=== PATIENT | female | born 1960 | race Hispanic/Latino ===

== ENCOUNTER → 2017-03-14 | Outpatient (CLI) | payer MEDICARE, OTHER ==
[~2017-03-14] MED LIST: ALPRAZOLAM0.5 M1 PO; CALCITRIOL0.5 MCG PO; CARVEDILOL6.25 MG PO; CEPHALEXIN500 MG PO; CIPRO500 MG PO; DIAZEPAM10 MG PO; DICYCLOMINE HCL20 MG PO; FOLIC ACID1 MG PO; GABAPENTIN100 MG; GABAPENTIN100 MG PO; HYDROCODON-ACE1 EA12 PO; KEFLEX500 MG PO; LAMOTRIGINE25 MG PO; LISINOPRIL10 MG PO; METHYLPREDNISOLO4 MG PO; METOPROLOL SUCC25 MG PO; METOPROLOL TART25 MG PO; METRONIDAZOLE500 MG PO; NITROGLYCERIN0.4 MG SL; NORCO 10-325 T1 EACH PO; NORCO 5-325 TA1 EACH PO; ONDANSETRON HCL8 MG PO; PANTOPRAZOLE SO40 MG PO; PREVACID30 M1 PO; PROTONIX IV40 MG PO; RENVELA800 MG PO; ULTRAM 50MG50 MG PO; ULTRAM50 MG PO; VITAMIN D400 UNIT PO; XANAX0.25 MG PO; ZOFRAN ODT4 MG PO; ZOFRAN8 MG PO
--- NOTE | 2017-03-14 10:30 | Diagnostic Imaging Report ---
EXAMINATION: Head CT HISTORY: History of prior intracranial hemorrhage, evaluate for antiplatelet treatment. Bilateral lower extremity weakness, diabetes, hypertension, patient on dialysis COMPARISON: Head CT 11/16/2014 and 11/10/2014 and MRI of 11/10/2014 TECHNIQUE: Multidetector axial images were obtained without contrast from the foramen magnum to the vertex . The images were reconstructed using brain and bone algorithms. Thin section brain images were reformatted into coronal and sagittal planes. Intravenous contrast: None. Motion/streaking artifact limits the evaluation of the skull base and posterior cranial fossa. FINDINGS: Parenchyma: 1. Persistent moderate confluent periventricular and rosales radiata white matter hypodensities, most likely nonspecific chronic microvascular ischemic changes. Tiny chronic lacunar infarct in the right frontal centrum semiovale 2. No mass or hemorrhage. No CT evidence of acute territorial vascular insult. Extra-axial spaces:No abnormal density. No extra-axial fluid collections Brain volume: Normal for age. Ventricles: No hydrocephalus or displacement. Arteries: Prominent calcification of the intra and extracranial vessels, likely related to chronic renal disease. Dural sinuses: No abnormal density. Extra-axial spaces: No abnormal density. Foramen magnum: No mass, Chiari malformation, or basilar invagination. Sella: No obvious mass. Paranasal/mastoid sinuses: Imaged portions unremarkable. Skull/Scalp: Unchanged mild expansion, heterogeneous bone marrow density and mostly diffuse hyperdensity of the calvarial bone marrow, related to known hyperparathyroidism, which may be related to renal osteodystrophy. IMPRESSION: 1. No evidence of acute or chronic intracranial hemorrhage, particularly when compare to brain MRI on 11/10/2014. 2. Stable moderate confluent white matter chronic microvascular ischemic changes. Signed by: Dr. Aida Manley M.D. on 03/14/2017 10:27 AM
== END ==
LOC: MRI 09:05
PROVIDERS: ATTEND Internal Medicine Cardiovascular Disease
DX: Z87.898 Personal history of other specified conditions (principal)
CPT/HCPCS: 70450

== ENCOUNTER → 2017-03-21 | Outpatient (CLI) | payer MEDICARE, OTHER ==
[~2017-03-21] MED LIST changes: +LORAZEPAM INJ 2 MG/ML VIAL ONE
--- NOTE | 2017-03-21 11:27 | Diagnostic Imaging Report ---
Exam: Brain and intracranial MRA without IV contrast History: History of intracranial hemorrhage Comparison studies: Brain MRI 11/10/2014. Head CTs of 03/14/2017 and 11/08/2014. Technique: Brain MRI: Sagittal axial T2 FS, axial coronal T2 flair, axial DWI, axial T1 FLAIR and axial T2*GRE. Intracranial MRA: Axial 3-D [id number] with coronal, sagittal and 3-D MIP reformats. Findings: Brain: Scalp: No abnormal signal. No masses. Bone marrow: Decreased T1 and T2 marrow signal may be related to sclerotic changes as sequela of renal osteodystrophy and associated hyperparathyroidism. Brain sulci: Mildly prominent. Ventricles: Mild compensatory dilatation. No hydrocephalus. Extra axial spaces: No mass, no fluid collection. Parenchyma: No mass, hemorrhage or acute ischemia. A few scattered discrete and confluent-appearing periventricular T2 FLAIR hyperintense signal changes in the supratentorial white matter and mild T2 FLAIR hyperintense signal changes in the anthony are nonspecific but most compatible with chronic small vessel ischemic changes. There is a small chronic lacunar infarct in the left thalamus an right lateral subinsular region which are unchanged. Suprasellar region: No abnormalities. Craniocervical junction: No abnormalities. The foramen magnum is patent. No Chiari malformations. Vessels: Normal flow-voids in the arteries and sinuses. Incidental findings: Previous inflammatory changes in the paranasal sinuses have resolved. Inflammatory changes in the mastoids have nearly completely resolved, now with only minimal residual changes. Abnormal right lens may reflect cataract and could be correlated with ophthalmologic exam. Intracranial MRA: Internal carotid arteries: Patent. No flow abnormalities. Calcifications within the siphons bilaterally as seen on previous CTs do not result in significant stenosis. Middle cerebral arteries: Patent. No flow signal abnormalities in the M1 and proximal M2 segments. Anterior cerebral arteries: Patent. No flow signal abnormalities in the A1 and proximal A2 segments. Included intradural V4 segments of the vertebral arteries: Patent. No flow signal abnormalities. The proximal intradural V4 segments lie outside imaged [id number]. Basilar artery: Patent. No flow signal abnormalities. Posterior cerebral arteries: Patent. No flow signal abnormalities. Anatomical variants: Acom: Visualized. Pcoms: Visualized bilaterally. Vertebral arteries: Co-dominant. IMPRESSION: Brain: 1. No new intracranial abnormalities compared to the previous brain MRI of 11/10/2014. 2. Mild generalized volume loss. 3. Moderate chronic microvascular ischemic changes. 4. Chronic right subinsular left thalamic lacunar infarct. MRA: 1. No significant intracranial MRA abnormalities. 2. Nonstenotic vascular calcifications in the carotid siphons. Signed by: Dr. Quincy Arias M.D. on 03/21/2017 11:23 AM
== END ==
LOC: MRI 08:20
PROVIDERS: ATTEND Internal Medicine Cardiovascular Disease
DX: Z87.898 Personal history of other specified conditions (principal); I62.9 Nontraumatic intracranial hemorrhage, unspecified
CPT/HCPCS: 36415; 70544; 70551; 82948; J2060

== ENCOUNTER 2017-07-29 19:10 | Emergency (ER) | payer MEDICARE, OTHER ==
[~2017-07-29] VITALS: Ht 157.5 cm; Wt 74.8 kg
[~2017-07-29 19:10] MED LIST changes: -LORAZEPAM INJ 2 MG/ML VIAL ONE
[2017-07-29] MEDS ORDERED: ZOFRAN ODT4 MG (20:30)
== END 2017-07-29 21:22 | disposition left against medical advice (07) ==
LOC: FSED 19:10
DX: R10.2 Pelvic and perineal pain (principal); N18.6 End stage renal disease; Z99.2 Dependence on renal dialysis
CPT/HCPCS: 74177; 80053; 85025; 99283

== ENCOUNTER 2017-08-17 17:07 | Inpatient (IN) | payer MEDICARE, OTHER ==
[~2017-08-17] VITALS: Ht 157.5 cm; Wt 76.3 kg
[~2017-08-17 17:07] MED LIST changes: -DEXTROSE 5% 250ML 250 ML IV ONE; -EPHEDRINE SULFATE INJ 50 MG/10 ML SYR ONE; -FENTANYL CITRATE/PF 100MCG/2 ML INJ ONE; -LIDOCAINE HCL 2% LOCAL INJ 5 ML SDV VIAL INJ ONE; -PROPOFOL IV EMULSION 10 MG/ML 50 ML VIAL ONE; -SODIUM CHLORIDE 0.9% 500ML 500 ML ONE
[2017-08-17] MEDS ORDERED: ACETAMINOPHEN 325 MG TAB PO STA (17:33)
[2017-08-17] MEDS ORDERED: SODIUM CHLORIDE 0.9% 1000ML 1,000 ML IV STA (17:33)
[2017-08-17] MEDS ORDERED: MORPHINE SULFATE INJ 4 MG/ML INJ IV STA (17:33)
[2017-08-17] MEDS ORDERED: PANTOPRAZOLE 40 MG 10ML VIAL IV ONE (17:33)
[2017-08-17] MEDS ORDERED: SODIUM CHLORIDE 0.9% 250ML 250 ML IV ONE (17:45)
[2017-08-17] MEDS ORDERED: CEFEPIME HCL 2 GM VIAL IV ONE (17:45)
[2017-08-17] MEDS ORDERED: DIPHENHYDRAMINE HCL INJ 50 MG/ML VIAL IV ONE (17:45)
[2017-08-17] MEDS ORDERED: FAMOTIDINE 20 MG/2 ML VIAL IV ONE (17:45)
[2017-08-17] MEDS ORDERED: OCTREOTIDE ACETATE 500 MCG in SODIUM CHLORIDE 0.9% 250ML 250 ML IV ONE (17:45)
[2017-08-17 18:01] LABS: BASOPHILS # (AUTO) 0.1 (0.0-0.1); BASOPHILS % 0.5 % (0.0-1.0); EOSINOPHILS # (AUTO) 0.1 (0.0-0.4); EOSINOPHILS % 0.7 % (0.0-6.0); HEMATOCRIT 36.6 % (34.2-44.1); LYMPHOCYTES # (AUTO) 0.8 (1.0-3.2); LYMPHOCYTES % 7.4 % (18.0-39.1); MEAN CORPUSCULAR HGB CONC 32.8 g/dL (31-35); MEAN CORPUSCULAR VOLUME 94.6 fL (81-99); MONOCYTES # (AUTO) 0.2 (0.2-0.8); MONOCYTES % 2.1 % (4.4-11.3); NEUTROPHILS # (AUTO) 9.4 (2.1-6.9); NEUTROPHILS % 88.9 % (38.7-80.0); PLATELET COUNT 138 x10e3/uL (140-360); RED BLOOD COUNT 3.87 x10e6/uL (3.6-5.1); RED CELL DISTRIBUTION WIDTH 15.6 % (11.7-14.4)
[2017-08-17 18:10] LABS: INR 1.42; PARTIAL THROMBOPLASTIN TIME 33.7 seconds (23.8-35.5); PROTHROMBIN TIME 16.3 seconds (11.9-14.5)
[2017-08-17 18:21] LABS: ALBUMIN 3.8 g/dL (3.5-5.0); ALKALINE PHOSPHATASE 76 IU/L (40-150); AMYLASE 50 U/L (25-125); ANION GAP 19.7 mmol/L (8-16); BLOOD UREA NITROGEN 20 mg/dL (7-26); BUN/CREATININE RATIO 3 (6-25); CALCIUM 10.5 mg/dL (8.4-10.2); CARBON DIOXIDE 26 mmol/L (22-29); CHLORIDE 92 mmol/L (98-107); CREATININE, SERUM 5.98 mg/dL (0.57-1.11); EST GLOMERULAR FILTRATION RATE 7 ML/MIN (60-); GLUCOSE 64 mg/dL (74-118); LIPASE 21 U/L (8-78); MAGNESIUM 1.9 MG/DL (1.3-2.1); POTASSIUM 3.7 mmol/L (3.5-5.1); SODIUM 134 mmol/L (136-145)
[2017-08-17 18:22] LABS: ALANINE AMINOTRANSFERASE < 6 IU/L (0-55)
[2017-08-17] MEDS ORDERED: VANCOMYCIN 1GM/NS 250 ML 250 ML IV ONE (18:30)
--- NOTE | 2017-08-17 18:58 | Diagnostic Imaging Report ---
PROCEDURE:ABDOMEN ACUTE SERIES W/PA CXR COMPARISON:Patients [facility], DX, ABDOMEN-1VIEW (KUB), 12/05/2014, 8:45. INDICATIONS:ABDOMINAL PAIN FINDINGS: CHEST: Hypoinflated lungs. Bibasilar atelectasis. Questionable small pleural effusions. Enlarged cardiac silhouette. Central pulmonary venous congestion and bilateral interstitial opacities extending from the luann, likely representing pulmonary edema. BOWEL PATTERN: Gaseous distention of multiple air-filled bowel loops, however, no definite dilation. SOFT TISSUES: Cholecystectomy clips. No abnormal calcifications overlie the abdomen. Calcific densities overlying the mid pelvis likely represent fibroids. Extensive vascular calcifications. BONES: No acute abnormalities. CONCLUSION: 1. enlarged cardiac silhouette with central pulmonary venous congestion and bilateral interstitial pulmonary edema. Findings likely representing decompensated CHF. Questionable small pleural effusions. 2. gaseous distention of multiple air-filled bowel loops, however, no definite dilation is noted. Armen Boggs M.D. Dictated by: Armen Boggs M.D. on 08/17/2017 at 19:03 Electronically approved by: Armen Boggs M.D. on 08/17/2017 at 19:03
[2017-08-17] MEDS ORDERED: GENTAMICIN 120MG/NS 100ML 100 ML IV ONE (19:15)
[2017-08-17] MEDS ORDERED: MORPHINE SULFATE 2 MG/ML SYR IV PRN (19:15)
[2017-08-17] MEDS ORDERED: PROMETHAZINE 25MG/ NS 50ML (IV) IV PRN (19:15)
[2017-08-17] MEDS: ONDANSETRON HCL INJ 2 MG/ML VIAL IV PRN ×2 (19:24→21:14)
[2017-08-17 23:00] VITALS: BP_SYST 147; BP_SYST 148; BP_DIAS 72; BP_DIAS 73
[2017-08-17 23:15] VITALS: BP 142/78
[2017-08-17 23:30] VITALS: BP 142/69
[2017-08-17 23:45] VITALS: BP 148/78
[2017-08-18] VITALS (101 sets, daily range): BP systolic 75–159; BP diastolic 25–127
[2017-08-18] MEDS: ONDANSETRON HCL INJ 2 MG/ML VIAL IV PRN ×3 (01:00→16:37)
[2017-08-18] MEDS: ACETAMINOPHEN 325 MG TAB PO PRN (03:22)
[2017-08-18 06:35] LABS: BASOPHILS % 0.3 % (0.0-1.0); EOSINOPHILS # (AUTO) 0.1 (0.0-0.4); EOSINOPHILS % 0.5 % (0.0-6.0); HEMATOCRIT 35.5 % (34.2-44.1); HEMOGLOBIN 11.2 g/dL (12.0-16.0); LYMPHOCYTES # (AUTO) 0.8 (1.0-3.2); LYMPHOCYTES % 7.2 % (18.0-39.1); MEAN CORPUSCULAR HEMOGLOBIN 30.9 pg (28-32); MEAN CORPUSCULAR HGB CONC 31.5 g/dL (31-35); MEAN CORPUSCULAR VOLUME 98.1 fL (81-99); MONOCYTES # (AUTO) 0.3 (0.2-0.8); MONOCYTES % 2.2 % (4.4-11.3); NEUTROPHILS # (AUTO) 10.2 (2.1-6.9); NEUTROPHILS % 89.5 % (38.7-80.0); PLATELET COUNT 84 x10e3/uL (140-360); RED BLOOD COUNT 3.62 x10e6/uL (3.6-5.1); RED CELL DISTRIBUTION WIDTH 15.8 % (11.7-14.4)
[2017-08-18 06:45] LABS: ANION GAP 19.8 mmol/L (8-16); CALCIUM 10.3 mg/dL (8.4-10.2); CREATININE, SERUM 6.41 mg/dL (0.57-1.11); POTASSIUM 3.8 mmol/L (3.5-5.1)
--- NOTE | 2017-08-18 07:31 | History and Physical ---
A 56-year-old female, who comes in with abdominal pain, flank pain, intractable nausea and vomiting, and cramping in the epigastric area. HISTORY OF PRESENTING ILLNESS: This is . Robina Richard with a history of end-stage renal disease, with a history of diabetes mellitus, with end-stage renal disease, retinal complications, and also, neuropathy with until the patient was sent out to the hospital for an endoscopy and colonoscopy. The patient had that and later on, in the evening, the patient started with abdominal pain, temperature 100.4, hematemesis, and pain which is more epigastric with some coffee-ground emesis. The patient was admitted for sepsis, for GI bleed, and for end-stage renal disease. PAST MEDICAL HISTORY: History of end-stage renal disease, history of coronary artery disease, history of hypertension, and history of neuropathy, history of gastroparesis, and history of retinopathy. FAMILY HISTORY: Positive for diabetes, hypertension, coronary artery disease. REVIEW OF SYSTEMS: Negative for chest pain. No shortness of breath. Positive for nausea, intractable, and vomiting with coffee-grounds. No hematochezia and no other symptoms. No diplopia, no blurry vision. Positive for blindness secondary to retinopathy and glaucoma. EXAMINATION GENERAL: Patient is alert and oriented times 3. She is in distress. Nausea has been controlled, she says, but the pain is still there. HEENT: Pupils are equal, not reactive. Normocephalic, atraumatic. Pharynx normal. Erythema in the throat. NECK: No JVD and no carotid pulse bruits. CVS: Tachycardic. No adventitious sounds. Pulses are tachy. RESPIRATORY: Decreased air entry in lung bases, otherwise clear to auscultation. ABDOMEN: Tenderness in the epigastric area. SKIN: No cyanosis, no pallor. EXTREMITIES: Normal. Decreased sensation and hyperesthesia. NEUROLOGIC: Alert and oriented times 3 noted mental status. LABORATORY VALUES: CBC was normal. Creatinine of 5.3. EKG tachycardia with right bundle-branch block. INITIAL IMPRESSIONS 1. Acute abdominal pain, status post esophagogastroduodenoscopy. 2. Gastrointestinal bleed. 3. Intractable nausea and vomiting. 4. Sepsis. 5. History of gastroparesis. PLAN: The patient has been started on Sandostatin. Blood pressures have been monitored in the ICU. Will keep her in the ICU. Also, gentamicin has been given. Blood cultures have been taken. Urine cultures have been taken. Also, consult with gastroenterology, Dr. Boni Odell, has been done, and also, consult with Dr. Dodson for renal has been done too. PATIENT IS ALLERGIC TO VANCOMYCIN. Temperature has been normal, so will keep her still in the ICU until serial H and H's have stabilized and the blood pressure is looking good and also, the coffee-ground vomitus has stopped. For further information look in the chart. For medicines, will reconcile her medications in the ICU. Job#: [id number] CQ
[2017-08-18] MEDS ORDERED: LORAZEPAM INJ 2 MG/ML VIAL IV PRN (08:15)
[2017-08-18] MEDS ORDERED: SODIUM CHLORIDE 0.9% 1000ML 2,000 ML ONE (08:27)
--- NOTE | 2017-08-18 08:57 | Consultation ---
DATE OF CONSULTATION: August 18, 2017 RENAL CONSULTATION REASON FOR CONSULTATION: End-stage renal disease. HISTORY OF PRESENT ILLNESS: A 56-year-old female with end-stage renal disease, on hemodialysis Monday, Monday and Monday. The patient had colonoscopy and endoscopy on August 17, 2017, electively. However, when she got home she developed nausea, vomiting, abdominal pain, and low-grade fever. The patient apparently also had some coffee-ground emesis. She was admitted to the intensive care unit and placed on octreotide drip, and nephrology and GI were consulted. The patient at this time feels much improved and is anxious to go home. REVIEW OF SYSTEMS: As above. Currently, all other systems negative. PAST MEDICAL HISTORY 1. End-stage renal disease, on hemodialysis Monday, Monday and Monday. 2. Diabetes complicated by neuropathy, retinopathy and nephropathy. 3. Coronary artery disease. 4. Hypertension. 5. Gastroparesis. 6. Atrial fibrillation. FAMILY HISTORY: Strong family history for end-stage renal disease. SOCIAL HISTORY: No tobacco. No alcohol. No IV drugs. ALLERGIES: VANCOMYCIN. CURRENT MEDICATIONS: See list. PHYSICAL EXAMINATION VITALS: Blood pressure 151/78, pulse 93, respiratory rate 16. GENERAL: No apparent distress. HEENT: Oropharynx clear. No scleral icterus. No peripheral edema. NECK: Supple. No elevation in jugular venous pressure. No lymphadenopathy. CHEST: Clear to auscultation anteriorly bilaterally. CARDIOVASCULAR: Regular rhythm. ABDOMEN: Soft. Positive bowel sounds. No tenderness. No rebound. EXTREMITIES: Trace edema. LABS: White count 11.4, hemoglobin 11.2, hematocrit 35.5, and platelets 84,000. Sodium 135, potassium 3.8, BUN 24, creatinine 6.41. Calcium 10.3. ASSESSMENT AND PLAN 1. End-stage renal disease: Will plan for hemodialysis today. The patient runs approximately 3 hours and 15 minutes with saline flushes only, and continue on Monday, Monday and Monday. 2. Anemia secondary to chronic kidney disease: Will resume Epogen if hemoglobin drops below 11. 3. Nausea, vomiting and coffee-ground emesis: Per gastroenterology. The patient is on octreotide. 4. Lytes acceptable. 5. Hypertension: Will follow after dialysis. Job#: [id number] AR
[2017-08-18] MEDS ORDERED: ZIPRASIDONE 20 MG VIAL IM STA (10:11)
[2017-08-18] MEDS: TEMAZEPAM 15 MG CAP PO SCH (20:19)
[2017-08-19] VITALS (12 sets, daily range): BP systolic 93–142; BP diastolic 33–64
[2017-08-19] MEDS ORDERED: LOPERAMIDE HCL 2 MG CAP PO ONE (06:45)
[2017-08-19] MEDS: ACETAMINOPHEN 325 MG TAB PO PRN ×2 (10:13→18:17)
[2017-08-19] MEDS ORDERED: EPINEPHRINE HCL SYRINGE ONE (17:41)
[2017-08-19] MEDS ORDERED: KETOROLAC TROMETHAMINE 30 MG/ML VIAL IV PRN (20:15)
[2017-08-19] MEDS: TEMAZEPAM 15 MG CAP PO SCH (21:58)
[2017-08-20] VITALS (81 sets, daily range): BP systolic 74–167; BP diastolic 47–92
[2017-08-20 04:01] LABS: BASOPHILS # (AUTO) 0.1 (0.0-0.1); BASOPHILS % 0.5 % (0.0-1.0); EOSINOPHILS # (AUTO) 0.2 (0.0-0.4); EOSINOPHILS % 1.5 % (0.0-6.0); HEMATOCRIT 35.3 % (34.2-44.1); LYMPHOCYTES % 45.6 % (18.0-39.1); MEAN CORPUSCULAR HEMOGLOBIN 31.2 pg (28-32); MEAN CORPUSCULAR HGB CONC 28.3 g/dL (31-35); MONOCYTES # (AUTO) 1.1 (0.2-0.8); MONOCYTES % 9.5 % (4.4-11.3); NEUTROPHILS # (AUTO) 4.6 (2.1-6.9); PLATELET COUNT 155 x10e3/uL (140-360); RED BLOOD COUNT 3.21 x10e6/uL (3.6-5.1); RED CELL DISTRIBUTION WIDTH 16.1 % (11.7-14.4)
[2017-08-20 04:21] LABS: ALBUMIN/GLOBULIN RATIO 0.9 (0.8-2.0); ANION GAP 25.6 mmol/L (8-16); CALCIUM 9.4 mg/dL (8.4-10.2); CREATININE, SERUM 6.77 mg/dL (0.57-1.11); POTASSIUM 5.6 mmol/L (3.5-5.1)
[2017-08-20 04:24] LABS: ANISOCYTOSIS SLIGHT; EOSINOPHILS % (MANUAL) 2 % (0-7); LYMPHOCYTES % (MANUAL) 44 % (19-48); METAMYELOCYTES % (MANUAL) 2 % (0-0); MONOCYTES % (MANUAL) 2 % (3.4-9.0); MYELOCYTES % (MANUAL) 2 % (0-0); NEUTROPHILS % (MANUAL) 48 % (40-74); PLATELET ESTIMATE ADEQUATE; PLATELET MORPHOLOGY COMMENT NORMAL; RBC MORPHOLOGY COMMENT ABNORMAL
[2017-08-20 04:27] LABS: CREATINE KINASE MB 1.1 ng/mL (0-5.0)
--- NOTE | 2017-08-20 04:34 | Diagnostic Imaging Report ---
ADDENDUM #1 Dose modulation, iterative reconstruction, and/or weight based adjustment of the mA/kV was utilized to reduce the radiation dose to as low as reasonably achievable. Signed by: DR Abisai Landry M.D. on 10/10/2017 7:09 PM ORIGINAL REPORT History:Code blue, unresponsive Comparison studies:MRI brain 03/21/2017 Technique: Axial images were obtained from the skull base to the vertex. Coronal and sagittal images reconstructed from the axial data. Intravenous contrast: None Findings: Scalp/skull: No abnormalities. Extra-axial spaces: No masses. No fluid collections. Brain sulci: Age-appropriate. Ventricles: Age-appropriate.. No hydrocephalus. Parenchyma: Scattered small hypodensities in the supratentorial white matter are small vessel ischemic changes. No masses, hemorrhage, acute or chronic cortical vascular insults. Sellar/suprasellar region: No abnormalities. Craniocervical junction: Patent foramen magnum. No Chiari one malformation. Incidental findings: Atherosclerotic calcifications in the carotid siphons and vertebral arteries . Impression: No acute abnormalities. Mild supratentorial white matter small vessel ischemic changes. Signed by: DR Abisai Landry M.D. on 08/20/2017 4:30 AM
[2017-08-20] MEDS ORDERED: SODIUM CHLORIDE 0.9% 1000ML 1,000 ML ONE (04:38)
--- NOTE | 2017-08-20 04:59 | Diagnostic Imaging Report ---
EXAM: CHEST SINGLE (PORTABLE), AP 1 view INDICATION: Unresponsive COMPARISON: AP view of the chest August 17, 2017 FINDINGS: LINES/TUBES: The endotracheal tube is at the jensen. LUNGS: Bilateral interstitial and alveolar opacities suggesting edema. PLEURA: No effusions or pneumothorax. HEART AND MEDIASTINUM: Stable enlargement of the cardiomediastinal silhouette. BONES AND SOFT TISSUES: No acute findings. IMPRESSION: The endotracheal tube is at the jensen. Cardiomegaly and pulmonary edema. Signed by: Dr. Nicci Schuster M.D. on 08/20/2017 4:55 AM
[2017-08-20] MEDS ORDERED: NOREPINEPHRINE INJ 4MG/4ML 8 MG in DEXTROSE 5% 250ML 250 ML IV SCH ×4 (05:15)
[2017-08-20] MEDS ORDERED: NOREPINEPHRINE 8 MG/D5W 250 ML 250 ML ONE (05:16)
[2017-08-20] MEDS ORDERED: NOREPINEPHRINE INJ 4MG/4ML 8 MG in DEXTROSE 5% 250ML 250 ML IV PRN (06:45)
[2017-08-20 06:53] LABS: CALCIUM IONIZED 1.2 mmol/L (1.09-1.30)
[2017-08-20 06:57] LABS: INR 2.29; PROTHROMBIN TIME 23.7 seconds (11.9-14.5)
[2017-08-20 06:58] LABS: PARTIAL THROMBOPLASTIN TIME 47.9 seconds (23.8-35.5)
[2017-08-20 07:05] LABS: MAGNESIUM 1.7 MG/DL (1.3-2.1)
[2017-08-20 07:38] LABS: FREE THYROXINE INDEX 2.1706 (1.4-3.8); THYROID STIMULATING HORMONE 4.245 uIU/mL (0.350-4.940)
--- NOTE | 2017-08-20 10:54 | Diagnostic Imaging Report ---
EXAM: ABDOMEN-1VIEW (KUB), DATE: 08/20/2017 10:32 AM INDICATION: Verify line placement. Intractable abdominal COMPARISON: 08/17/17. FINDINGS: LINES/TUBES: Right femoral central venous catheter with distal tip projected on the upper pelvis in the expected location of the right common iliac vein. BOWEL PATTERN: No evidence for obstruction. Decrease in bowel gas. SOFT TISSUES: Extensive atherosclerotic vascular calcifications. Lobulated density projected on the pelvis may represent calcified leiomyomata versus bladder calculus. Sesay catheter versus rectal temperature probe. LUNG BASES: Not included BONES: No acute findings. IMPRESSION: Right femoral central venous catheter with distal tip projected on the upper pelvis in the expected location of the right common iliac vein. Signed by: Dr. Gonzalez Grant M.D. on 08/20/2017 10:50 AM
[2017-08-20 11:44] LABS: BASOPHILS % 0.3 % (0.0-1.0); EOSINOPHILS # (AUTO) 0.1 (0.0-0.4); EOSINOPHILS % 0.9 % (0.0-6.0); HEMATOCRIT 37.2 % (34.2-44.1); HEMOGLOBIN 12.1 g/dL (12.0-16.0); LYMPHOCYTES # (AUTO) 0.9 (1.0-3.2); LYMPHOCYTES % 10.4 % (18.0-39.1); MEAN CORPUSCULAR HEMOGLOBIN 30.5 pg (28-32); MEAN CORPUSCULAR HGB CONC 32.5 g/dL (31-35); MONOCYTES # (AUTO) 0.3 (0.2-0.8); NEUTROPHILS # (AUTO) 7.2 (2.1-6.9); NEUTROPHILS % 83.9 % (38.7-80.0); RED BLOOD COUNT 3.97 x10e6/uL (3.6-5.1); RED CELL DISTRIBUTION WIDTH 15.6 % (11.7-14.4)
[2017-08-20 11:45] LABS: ABG HCO3 24 mmol/L (23-28); ABG PCO2 26 mmHg (41-51); ABG PH 7.56 (7.31-7.41); ABG PO2 101 mmHg (80-105)
[2017-08-20 11:59] LABS: MEAN CORPUSCULAR VOLUME 93.7 fL (81-99); PLATELET COUNT 107 x10e3/uL (140-360)
[2017-08-20 12:43] LABS: ANION GAP 21.2 mmol/L (8-16); CREATININE, SERUM 7.23 mg/dL (0.57-1.11)
[2017-08-20 12:46] LABS: POTASSIUM 3.2 mmol/L (3.5-5.1)
[2017-08-20] MEDS ORDERED: ACETAMINOPHEN 1000 MG/100 ML 100 ML IV ONE (13:45)
[2017-08-20] MEDS: PIPER-TAZ 3.375 GM 50 ML IV SCH ×2 (14:09→22:00)
[2017-08-20] MEDS: ACETAMINOPHEN 1000 MG/100 ML IV PRN (14:20)
--- NOTE | 2017-08-20 17:37 | Consultation ---
DATE OF CONSULTATION: August 20, 2017 CARDIAC CONSULTATION REASON FOR CONSULTATION: Status post CPR. HISTORY: A 56-year-old lady who is known with end-stage renal disease, diabetes mellitus and end-organ damage. Patient admitted to this institution on the 17 of August with nausea, vomiting, abdominal pain. She had EGD and colonoscopy. Patient was on the floor. As per who saw her at 10 o'clock, at that time she was having headache and she was having some respiratory distress and cough. Around 12:30 in the morning, patient's nurses checked on her. She was pulseless. CPR called, and patient had CPR with buddhism of pulse. Patient taken to the CAT scan. While she was there, she had another arrest. Patient's CT scan showed no acute [employer] bleeding or any other problem. Patient admitted to ICU for further care. Patient is in ICU. She is on small dose of Levophed 5 mcg, maintaining good blood pressure. She is unresponsive. She is on ventilator. Information taken from her and her daughter, who is a teacher. Apparently patient is known with end-stage renal disease on hemodialysis Monday/Monday/Monday for the last 11 years. She does have admission in 2014 for infection, and it was decided that "her heart, it was from her catheter." Regardless, patient maintained on dialysis. Her acute illness started with nausea, vomiting. There is no hematemesis, no melena. Patient is currently intubated. Unable to get more information. Review of systems taken from the family. Prior to this illness, patient was doing relatively well. Cardiac-swan there is no angina. Shortness of breath between dialysis and the night of the code patient was having headache and with nausea, vomiting, and she was having respiratory distress and cough. SOCIAL HISTORY: She is nonsmoker, nonalcohol drinker. , with good family support. CURRENT MEDICATIONS: Now are norepinephrine and other p.r.n. medications. Patient is not sedated. ALLERGIES: LEVAQUIN, VANCOMYCIN, METOCLOPRAMIDE, ASPIRIN, AND BENADRYL. FAMILY HISTORY: No family history of premature coronary artery disease although several members with diabetes and "they of diabetes." PHYSICAL EXAMINATION VITALS: Patient intubated, on ventilator, unresponsive. Height of 5 feet 2 inches, weight of 172 pounds. Blood pressure 120/80 on 5 mcg of epinephrine. Heart rate of 80. Respiratory rate of 18. HEENT. Pupils are very sluggish. Remarkable for patient being intubated. NECK: No elevation of jugular venous pulsation. CHEST: Bilateral crackles. HEART: PMI 5th left intercostal space. Normal 1st and 2nd heart sounds with soft ejection systolic murmur left sternal border. ABDOMEN: Mildly distended. No acute abdomen. EXTREMITIES: No cyanosis, no clubbing. Feet pulses are palpable at +1. NEUROLOGIC: Patient is not responsive. IMPRESSION AND PLAN: 1. Status post cardiopulmonary resuscitation. 2. End-stage renal disease on hemodialysis Monday/Monday/Monday. 3. Very high probability of coronary artery disease. 4. Respiratory failure. 5. Initial cardiac enzymes are normal. Cardiac-swan, recommendations are as follows: Wean off epinephrine. Checking 2nd set of cardiac enzymes. Checking ABGs. Supportive care. Checking an echocardiogram. Depending on her course, the results of her lab and her [employer] status, further steps to be taken. As I mentioned, patient is very high probability of significant severe coronary artery disease because of the long duration of her dialysis and diabetes mellitus. Job#: [id number] EV
[2017-08-20] MEDS: TEMAZEPAM 15 MG CAP PO SCH (21:00)
--- NOTE | 2017-08-20 21:30 | Consultation ---
DATE OF CONSULTATION: PULMONARY CRITICAL CARE CONSULTATION REASON FOR THE CONSULT: ICU management. HISTORY OF PRESENT ILLNESS: Ms. Richard is a 56-year-old female. She was admitted through the emergency room with a complaint of abdominal pain. She underwent endoscopy and was on the floor, was about to be discharged yesterday. She was seen by project/production manager imaging. She was seen by Dr. Boni Odell and then Dr. Dodson at around 12:30 to 1 a.m., and she was sleeping. Her vital signs were stable. She was breathing. was at bedside. Around 3 a.m., they went to take the vitals for the patient, and patient was unresponsive with no pulse. Code blue was called, and patient was resuscitated and intubated. She received epinephrine. I am unsure what was her initial rhythm when she arrested. According to the , she had no complaints of any abdominal pain, nausea, vomiting, and she was stable. She has end-stage renal disease. She has hemodialysis. She initially presented with coffee-ground emesis. REVIEW OF SYSTEMS: Unable to elicit any as patient is unresponsive. PAST MEDICAL HISTORY 1. End-stage renal disease. 2. Coronary artery disease. 3. Hypertension. 4. Gastroparesis. 5. Retinopathy. FAMILY HISTORY: Significant for diabetes. SOCIAL HISTORY: She does not smoke, does not drink. PHYSICAL EXAMINATION VITAL SIGNS: Temperature 96.9, pulse of 82, blood pressure 95/63. HEENT: Head atraumatic, normocephalic. No gag reflex. NECK: Supple. No JVD. CHEST: Clear to auscultation bilaterally. No wheezing. HEART: S1/S2 audible. ABDOMEN: Soft, nontender, nondistended. Bowel sounds audible. EXTREMITIES: No pedal edema. NEUROLOGICALLY: She is unresponsive to deep sternal rub. LABS AND DIAGNOSTICS: Sodium 132, potassium 5.6, chloride 96, BUN 26, creatinine 6.7. White count of 11,000, hemoglobin 10.0, platelets 155. INR is 2.29. Blood cultures, urine cultures are negative. Patient underwent head CT which showed no acute abnormalities. Chest x-ray, I reviewed the images. It is not showing any focal infiltrate. It shows cardiomegaly and increased congestion. ASSESSMENT/PLAN: Ms. Richard is a 56-year-old female. She presented to the emergency room with abdominal pain, abdominal distention. Patient has gastroparesis. Underwent EGD and colonoscopy, remained stable and was supposed to be discharged. Patient has end-stage renal disease and is on hemodialysis. Patient had a cardiac arrest. The duration is unknown. It happened between 1 a.m. and 3 a.m. Patient was resuscitated, intubated, and was transferred to ICU. CURRENT PROBLEMS 1. Status post cardiac arrest. 2. End-stage renal disease. 3. History of hypertension. 4. Gastrointestinal bleed, status post esophagogastroduodenoscopy and colonoscopy. 5. Coronary artery disease. PLAN 1. Patient is currently not responsive and absent gag reflex. We will at least give 72 hours to evaluate the neurologic recovery. This was explained in detail to the patient's at bedside. 2. Continue the patient on ventilatory support. She is on FIO2 of 50% and PEEP of 5 and saturating well. Will continue the setting. 3. Mild circulatory shock. She is just on 5 of Levophed, which will be gradually weaned off. I will order a stat echocardiogram. 4. Recent EGD and colonoscopy. Abdominal exam appears benign. At some point once she is more stable, will consider doing an EGD and colonoscopy. At some point she will need a CT of the abdomen and pelvis. Will hold off on it today. Start the patient on IV Zosyn. 5. End-stage renal disease. Patient is on hemodialysis. Nephrology is following the patient. 6. Hold off on all sedation to evaluate the mental status. This was explained in detail to the patient's at bedside. 7. Critical care time spent, 50 minutes. Job#: [id number] EV
[2017-08-21] VITALS (63 sets, daily range): BP systolic 110–139; BP diastolic 58–99
[2017-08-21 04:48] LABS: BASOPHILS % 0.5 % (0.0-1.0); EOSINOPHILS # (AUTO) 0.1 (0.0-0.4); EOSINOPHILS % 1.1 % (0.0-6.0); HEMATOCRIT 33.5 % (34.2-44.1); LYMPHOCYTES # (AUTO) 1.2 (1.0-3.2); LYMPHOCYTES % 15.2 % (18.0-39.1); MEAN CORPUSCULAR HEMOGLOBIN 30.8 pg (28-32); MEAN CORPUSCULAR HGB CONC 32.8 g/dL (31-35); MEAN CORPUSCULAR VOLUME 93.8 fL (81-99); MONOCYTES # (AUTO) 0.4 (0.2-0.8); MONOCYTES % 4.3 % (4.4-11.3); NEUTROPHILS # (AUTO) 6.3 (2.1-6.9); NEUTROPHILS % 78.5 % (38.7-80.0); PLATELET COUNT 99 x10e3/uL (140-360); RED BLOOD COUNT 3.57 x10e6/uL (3.6-5.1); RED CELL DISTRIBUTION WIDTH 16.4 % (11.7-14.4)
[2017-08-21 05:11] LABS: ALBUMIN 2.9 g/dL (3.5-5.0); ALBUMIN/GLOBULIN RATIO 0.8 (0.8-2.0); ANION GAP 23.1 mmol/L (8-16); CALCIUM 10.2 mg/dL (8.4-10.2); CHOL/HDL RATIO 9.9 (3.0-3.6); CREATININE, SERUM 8.38 mg/dL (0.57-1.11); POTASSIUM 3.1 mmol/L (3.5-5.1)
[2017-08-21] MEDS: PIPER-TAZ 3.375 GM 50 ML IV SCH ×3 (05:32→23:15)
[2017-08-21] MEDS: ACETAMINOPHEN 1000 MG/100 ML IV PRN (05:32)
--- NOTE | 2017-08-21 06:33 | Diagnostic Imaging Report ---
EXAM: CHEST SINGLE (PORTABLE), AP 1 view INDICATION: Intubated COMPARISON: AP view of the chest August 20, 2017 and August 17, 2017 FINDINGS: LINES/TUBES: The endotracheal tube terminates 3 cm above the jensen LUNGS: Bilateral interstitial and alveolar opacities suggesting edema. Bibasilar atelectasis. PLEURA: Indeterminate for effusion on the left. HEART AND MEDIASTINUM: Stable marked enlargement of the cardiomediastinal silhouette. BONES AND SOFT TISSUES: No acute findings. IMPRESSION: No significant interval change given rotation. The endotracheal tube terminates 3 cm above the jensen. Signed by: Dr. Nicci Schuster M.D. on 08/21/2017 6:30 AM
[2017-08-21] MEDS ORDERED: POTASSIUM CHLORIDE 20MEQ/100ML 100 ML IV ONE (10:30)
[2017-08-21] MEDS ORDERED: CALCIUM CHLORIDE 10% 1.36 MEQ/ML 10ML SYR IV ONE (10:33)
[2017-08-21] MEDS ORDERED: EPINEPHRINE HCL SYRINGE IV ONE (10:33)
[2017-08-21] MEDS ORDERED: LIDOCAINE HCL/D5W 4 MG/ML 2000 MG/500 ML BAG IV ONE (10:33)
[2017-08-21] MEDS ORDERED: SODIUM BICARBONATE 8.4% INJ 50 ML SYR IV ONE (10:33)
[2017-08-21] MEDS ORDERED: VANCOMYCIN 1GM/NS 250 ML 250 ML IV ONE (11:15)
[2017-08-21] MEDS ORDERED: POTASSIUM CHLORIDE 20MEQ/100ML 100 ML ONE (13:52)
--- NOTE | 2017-08-21 20:02 | Diagnostic Imaging Report ---
EXAMINATION: MRI of the brain without contrast. HISTORY: Unresponsive, coded, CVA, ESRD. COMPARISON: Head CT on 08/20/2017 TECHNIQUE: Sagittal T2; axial DWI, T2, FLAIR, T1-IR, T2 gradient echo; coronal FLAIR. IMAGE QUALITY: Motion artifact limits evaluation of some of the sequences.. FINDINGS: Parenchyma: 1. Diffuse T2 and FLAIR hyperintensity and subtle restricted diffusion throughout the bilateral basal ganglia (putamen/caudate nuclei) as well as the bilateral thalami and probable subtle similar finding in the bilateral parieto-occipital and cerebellar cortex, worrisome for deep anoxic ischemic brain injury. 2. Moderate confluent periventricular and rosales radiata white matter T2 and FLAIR hyperintense foci, likely nonspecific chronic microvascular ischemic changes. 3. No mass or hemorrhage. Skull: Nonspecific diffuse low T1 signal intensity throughout the calvarium and skull base bone marrow, which may be related to ESRD. Vessels: Expected flow voids present in the major arteries and dural sinuses. Extra-axial spaces: No abnormal signal intensity or mass effect. Brain volume: Within normal limits for age. Ventricles: No hydrocephalus or displacement. Foramen magnum: Unremarkable. Sella: Unremarkable. Paranasal / mastoid sinuses: The following pulmonary thickening of partial opacification of the ethmoidal, sphenoid and maxillary sinuses, retained secretions in the partially visualized oropharynx, partially visualized endotracheal tube. IMPRESSION: 1. Extensive deep brar nuclei and bilateral cerebral hemispheres areas of FLAIR hyperintensity and restricted diffusion, likely related to deep anoxic ischemic brain injury. 2. Moderate chronic microvascular ischemic changes. 3. No intracranial mass, hemorrhage, hydrocephalus or extra-axial fluid collections. Signed by: Dr. Aida Manley M.D. on 08/21/2017 7:59 PM
--- NOTE | 2017-08-21 21:26 | Consultation ---
DATE OF CONSULTATION: August 21, 2017 NEUROLOGY CONSULTATION HISTORY OF PRESENT ILLNESS: Ms. Richard is a 56-year-old woman with past medical history significant for hypertension, diabetes mellitus type 2 complicated by retinopathy, gastroparesis, neuropathy, coronary artery disease, and end-stage renal disease on hemodialysis Mondays, Wednesdays and Fridays, admitted to [facility] on August 17, 2017 with a gastrointestinal bleed. Patient is status post cardiac arrest on August 20, 2017. History is obtained from review of the electronic medical record. Ms. Richard underwent elective esophagogastroduodenoscopy and colonoscopy on August 17, 2017. Sometime after these procedures were performed, the patient developed a low-grade fever, abdominal pain, epigastric cramping, nausea and vomiting. The vomitus had the appearance of coffee-ground emesis. The patient was brought to [facility] on the evening of August 17, 2017, for evaluation of her symptoms. She was subsequently admitted for further treatment of an acute gastrointestinal bleed, end-stage renal disease, and sepsis. The patient remained hospitalized for approximately 2 days. She received treatment including intravenous antibiotics for her gastrointestinal bleed and sepsis. Ms. Richard was dialyzed on August 18, 2017. Ms. Richard was last seen resting comfortably sometime between midnight and 12:30 a.m. on August 20, 2017. At approximately 0300 that morning, a nurse's aide entered the patient's room to take her vital signs. Patient was found to be in cardiac arrest, and code ulises was called. Ms. Richard was intubated and resuscitated, then admitted to the intensive care unit on Levophed for blood pressure support. Over the next 24 hours, the patient was weaned from Levophed. She remained intubated and mechanically ventilated, but was observed to breathe over the ventilator. However, the patient remained unresponsive. Ms. Richard' core level of responsiveness prompted the ordering of an MRI of the brain without contrast, a routine EEG, and a neurology consultation for prognosis. During her hospitalization, Ms. Richard received a few different medications which were potentially sedating. Those medications are as follows: Ativan 0.5 mg IV on August 18, 2017, at 0901, Geodon 5 mg intramuscularly on August 18, 2017, at 1000, Zofran 4 mg intravenously on August 18, 2017, at 1637, and Restoril 15 mg by mouth on August 19, 2017, at 2200. The patient's last session of hemodialysis took place on Friday, August 18, 2017, sometime after the patient received the Ativan and Geodon, but before she received the Zofran and Restoril. At the time of neurological evaluation, the patient has not received sedative/hypnotic, pain, or other potentially sedating medications in approximately 45-1/2 hours. REVIEW OF SYSTEMS: Unable to obtain secondary to the patient being intubated and unresponsive. PAST MEDICAL HISTORY: Hypertension, diabetes mellitus type 2 complicated by retinopathy, gastroparesis, peripheral neuropathy, coronary artery disease, atrial fibrillation, end-stage renal disease on hemodialysis Mondays, Wednesdays and Fridays. PAST SURGICAL HISTORY: AV fistula placement in the left arm. PAST HOSPITALIZATIONS: Surgeries/procedures as listed, childbirth. FAMILY MEDICAL HISTORY: Hypertension, diabetes mellitus, coronary artery disease, end-stage renal disease. SOCIAL HISTORY: Ms. Richard is and has excellent family support. There is no known current or prior tobacco, alcohol, or recreational drug use. HOME MEDICATIONS: Carvedilol 6.25 mg by mouth twice daily, Renvela. HOSPITAL MEDICATIONS: Zosyn 50 mL at 100 mL per hour intravenously every 8 hours, Toradol 15 mg intravenously once as needed for pain, acetaminophen 650 mg by mouth every 6 hours as needed for pain and temperature, Zofran 4 mg intravenously every 4 hours as needed for nausea and vomiting, Ativan 0.5 mg intravenously every 6 hours as needed for anxiety, temazepam 15 mg by mouth at bedtime, norepinephrine 258 mL at 1 mL per hour intravenously, titrate as needed for low blood pressure, morphine sulfate 2 mg IV every 4 hours as needed for pain. Of these listed medications, Ms. Richard is only receiving Zosyn and acetaminophen at present. ALLERGIES: ASPIRIN, DIPHENHYDRAMINE, LEVOFLOXACIN, METOCLOPRAMIDE, VANCOMYCIN. NO KNOWN FOOD ALLERGIES. NO KNOWN ALLERGY TO LATEX. NO KNOWN ALLERGIES TO IODINE OR OTHER CONTRAST MATERIALS. HOWEVER, DUE TO THE PATIENT HAVING END-STAGE RENAL DISEASE, GADOLINIUM SHOULD NOT BE ADMINISTERED. PHYSICAL EXAMINATION VITAL SIGNS: Height 62 inches, weight 172 pounds, BMI 31.5 kg per meter squared. Blood pressure 124/68 mmHg. Pulse 87 beats per minute. Respiratory rate 22 breaths per minute. Oxygen saturation 100% on mechanical ventilation. GENERAL: Intubated, unresponsive. Obese. HEENT: Normocephalic and atraumatic. Pupils are fixed. Moist mucous membranes. Copious secretions. NECK: Supple. No appreciable thyromegaly. No appreciable carotid bruits. CARDIOVASCULAR: S1, S2, tachycardic with regular rhythm. No murmurs, rubs, or gallops. RESPIRATORY: Clear to auscultation bilaterally. No wheezes, rhonchi, or rales. EXTREMITIES: The skin is warm and dry. No clubbing, cyanosis, or edema. The posterior tibial and dorsalis pedis pulses are 1+ and symmetric. SKIN: No rashes or lesions. NEUROLOGIC EXAMINATION MEMORY/ATTENTION: The patient is intubated, unresponsive to verbal and noxious stimuli. CRANIAL NERVES: The pupils are 3.5 mm and nonreactive. Absent corneal, oculocephalic, and gag reflexes. The face appears symmetric. STRENGTH: Bulk is normal. There is no response to peripheral noxious stimulation. Tone is diminished throughout. DTRs: Deep tendon reflexes are absent. Plantar responses are mute bilaterally. SENSATION: Sensation is as per motor exam. CEREBELLAR: Unable to assess secondary to the patient being intubated and unresponsive. GAIT: Deferred. SPEECH: Unable to assess secondary to the patient being intubated and unresponsive. INVOLUNTARY MOVEMENTS: None. PRONATOR DRIFT: As per motor exam. LABORATORY DATA: Sodium 140, potassium 3.1, chloride 97, carbon dioxide 23, anion gap 23.1, BUN 38, creatinine 8.38, estimated GFR 5, NVS-js-vkyzzkimbf ratio 5, glucose 84, calcium 10.2, total bilirubin 2.9, AST 45, ALT 19, alkaline phosphatase 64, total protein 6.4, albumin 2.9, globulin 3.5, zrzogci-jl-cnxvslmu ratio 0.8. Amylase 50, lipase 21, creatine kinase 88, CK-MB 1.10, troponin I 0.019, 0.804. TSH 4.245, free T4 index 2.1706, thyroxine 6.42, T3 uptake 33.81. Total cholesterol 79, triglycerides 146, LDL cholesterol 42, HDL cholesterol 8. CBC with differential and platelets reveals a white blood cell count of 8.04 with 78.5% neutrophils, 15.2% lymphocytes, 4.3% monocytes, 1.1% eosinophils, and 0.5% basophils. Hemoglobin and hematocrit are 11.0 and 33.5, respectively. The platelet count is 99. PT 23.7, INR 2.29, PTT 47.9. DIAGNOSTIC STUDIES 1. Acute abdomen series, 08/17/2017: 1) Enlarged cardiac silhouette with central pulmonary venous congestion and bilateral interstitial pulmonary edema. Findings likely representing decompensated congestive heart failure. Questionable small pleural effusions. 2) Gaseous distention of multiple air-filled bowel loops. However, no definite dilation is noted. 2. Chest x-ray, 08/20/2017: The endotracheal tube is at the jensen. Cardiomegaly and pulmonary edema. 3. CT of the brain without contrast, 08/21/2007: No acute abnormalities. Mild supratentorial white matter small vessel ischemic changes. 4. Abdomen x-ray, 08/20/2017: Right femoral central venous catheter with distal tip projected on the upper pelvis in the expected location of the right common iliac vein. 5. Chest x-ray, 08/21/2017: No significant interval change given rotation. The endotracheal tube terminates 3 cm above the jensen. 6. MRI of the brain without contrast, 08/21/2017: The final report is pending. On my review, there is acute cortical ischemia on diffusion weighted images with ADC correlate. These findings are suggestive of diffuse hypoxic ischemic injury. There are nonspecific T2/FLAIR hyperintensities in the deep white matter compatible with mild to moderate chronic small vessel ischemic disease. 7. Electroencephalogram, 08/21/2017: On my review, the background activity is approximately 2 to 3 Hz with superimposed fast activity (approximately 13 to 14 Hz), probably due to medication effect. There is no driving response to photic stimulation. There is no appreciable reactivity of the underlying electrocortical activity. These findings are compatible with a severe, diffuse, generalized encephalopathy. ASSESSMENT AND PLAN: Ms. Richard is a 56-year-old woman with an extensive past medical history admitted to [facility] on August 17, 2017, with a gastrointestinal bleed, end-stage renal disease, and sepsis. At approximately 0300 on August 20, 2017, the patient was found to be in cardiac arrest. Ms. Richard was intubated, resuscitated, and transferred to the intensive care unit where she has remained unresponsive. Approximately 40-1/2 hours status post cardiac arrest, the patient is comatose. Ms. Richard' laboratory data and other diagnostic studies have been reviewed and are documented above. Unfortunately, the patient's neurological examination in combination with the findings on the MRI of the brain without contrast and routine electroencephalogram are suggestive of diffuse hypoxic ischemic injury. This diagnosis carries a poor prognosis. Ms. Richard will be monitored clinically for changes in her neurological status over the next 24 to 48 hours. If there are no improvements seen, it is probable the patient will remain in a persistent vegetative state. The above information was discussed in detail with several members of the patient's family. All family members had an opportunity to ask questions, which were answered to their satisfaction. Ms. Richard' family members voiced their understanding of the information presented. Thank you for this consultation. I will continue to follow this patient while she remains in the hospital. Time spent: 70 minutes. Job#: [id number] TRISTA PERKINS
[2017-08-22] VITALS (25 sets, daily range): BP systolic 89–141; BP diastolic 45–100
[2017-08-22 04:45] LABS: BASOPHILS % 0.4 % (0.0-1.0); EOSINOPHILS # (AUTO) 0.2 (0.0-0.4); HEMATOCRIT 32.7 % (34.2-44.1); HEMOGLOBIN 10.5 g/dL (12.0-16.0); LYMPHOCYTES # (AUTO) 1.3 (1.0-3.2); LYMPHOCYTES % 13.9 % (18.0-39.1); MEAN CORPUSCULAR HEMOGLOBIN 30.4 pg (28-32); MEAN CORPUSCULAR HGB CONC 32.1 g/dL (31-35); MEAN CORPUSCULAR VOLUME 94.8 fL (81-99); MONOCYTES # (AUTO) 0.5 (0.2-0.8); MONOCYTES % 5.1 % (4.4-11.3); NEUTROPHILS # (AUTO) 7.4 (2.1-6.9); PLATELET COUNT 91 x10e3/uL (140-360); RED BLOOD COUNT 3.45 x10e6/uL (3.6-5.1); RED CELL DISTRIBUTION WIDTH 16.5 % (11.7-14.4)
[2017-08-22 05:07] LABS: ALBUMIN/GLOBULIN RATIO 0.8 (0.8-2.0); ANION GAP 24.1 mmol/L (8-16); CALCIUM 10.2 mg/dL (8.4-10.2); CREATININE, SERUM 9.81 mg/dL (0.57-1.11); MAGNESIUM 1.8 MG/DL (1.3-2.1); POTASSIUM 4.1 mmol/L (3.5-5.1)
[2017-08-22] MEDS: PIPER-TAZ 3.375 GM 50 ML IV SCH ×3 (06:20→21:30)
--- NOTE | 2017-08-22 06:27 | Diagnostic Imaging Report ---
CHEST SINGLE (PORTABLE), 08/22/2017 5:00 AM Technique: CHEST SINGLE (PORTABLE) Comparison: 08/31/2017 Clinical history: Intubated Findings: See Impression Impression: 1. Lines/Tubes: Stable ET tube 1.3 cm above the jensen. 2. Stable enlarged cardiomediastinal silhouette. Aortic calcifications. 3. Improved edema. Left greater than right bibasilar atelectasis or consolidation, slightly improved. 4. Probable small left effusion. Signed by: Dr Dayna Bailey MD on 08/22/2017 6:23 AM
--- NOTE | 2017-08-22 08:32 | Diagnostic Imaging Report ---
Date and Time: 08/20/2017 Procedure: Right common femoral central venous catheter placement icicle machine operator: Dr. Crespo Pre-operative diagnosis: Status post CODE BLUE, pressor requirement Post-operative diagnosis: Status post CODE BLUE, pressor requirement Conscious Sedation: None The patient's heart rate and pulse oximetry were continuously monitored by the ICU nurse. Blood pressure was monitored at 5 minute intervals. Additional Medications: Lidocaine 1% for local anesthesia Contrast used: None Estimated blood loss: Minimal Blood products administered: None Specimens: None Implants: 7 [place] 20 cm triple-lumen central venous catheter Complications: No immediate Condition at completion of procedure: Critical Disposition: Remain in ICU DISCUSSION: Informed consent was obtained from the next of kin and documented in the medical record. Preliminary sonographic evaluation of the right inguinal region confirmed patency of the right common femoral vein, evidenced by compressibility. The right groin was prepped and draped in the standard sterile fashion. 1% lidocaine was infiltrated into the skin and subcutaneous tissues for local anesthesia. Then under continuous sonographic guidance an 18-gauge singlewall needle was used to access the right common femoral vein. A permanent sonographic image was stored in the medical record. A 0.0 3 5-in. wire was advanced centrally to a depth of 25 cm. The needle was removed over the wire and the tract was dilated. Then a 7 [place] 20 cm triple-lumen central venous catheter was advanced over the wire to full depth. The wire was removed. Each lumen showed adequate bidirectional flow and was flushed with sterile saline. The catheter was secured to the skin with monofilament nylon suture and a sterile dressing was applied. The patient tolerated the procedure well without immediate complication. FINDINGS: Patent right common femoral vein. IMPRESSION: Successful placement of a 7 [place] 20 cm triple-lumen central venous catheter by a right common femoral approach under sonographic guidance. Signed by: Dr. Quincy Crespo M.D. on 08/22/2017 8:28 AM
--- NOTE | 2017-08-22 08:32 | Diagnostic Imaging Report ---
Date and Time: 08/20/2017 Procedure: Right common femoral central venous catheter placement cut press operator: Dr. Crespo Pre-operative diagnosis: Status post CODE BLUE, pressor requirement Post-operative diagnosis: Status post CODE BLUE, pressor requirement Conscious Sedation: None The patient's heart rate and pulse oximetry were continuously monitored by the ICU nurse. Blood pressure was monitored at 5 minute intervals. Additional Medications: Lidocaine 1% for local anesthesia Contrast used: None Estimated blood loss: Minimal Blood products administered: None Specimens: None Implants: 7 [place] 20 cm triple-lumen central venous catheter Complications: No immediate Condition at completion of procedure: Critical Disposition: Remain in ICU DISCUSSION: Informed consent was obtained from the next of kin and documented in the medical record. Preliminary sonographic evaluation of the right inguinal region confirmed patency of the right common femoral vein, evidenced by compressibility. The right groin was prepped and draped in the standard sterile fashion. 1% lidocaine was infiltrated into the skin and subcutaneous tissues for local anesthesia. Then under continuous sonographic guidance an 18-gauge singlewall needle was used to access the right common femoral vein. A permanent sonographic image was stored in the medical record. A 0.0 3 5-in. wire was advanced centrally to a depth of 25 cm. The needle was removed over the wire and the tract was dilated. Then a 7 [place] 20 cm triple-lumen central venous catheter was advanced over the wire to full depth. The wire was removed. Each lumen showed adequate bidirectional flow and was flushed with sterile saline. The catheter was secured to the skin with monofilament nylon suture and a sterile dressing was applied. The patient tolerated the procedure well without immediate complication. FINDINGS: Patent right common femoral vein. IMPRESSION: Successful placement of a 7 [place] 20 cm triple-lumen central venous catheter by a right common femoral approach under sonographic guidance. Signed by: Dr. Quincy Crespo M.D. on 08/22/2017 8:28 AM
[2017-08-22 10:35] LABS: PHOSPHORUS 4.1 MG/DL (2.3-4.7)
--- NOTE | 2017-08-22 19:41 | Consultation ---
DATE OF CONSULTATION: August 22, 2017 CARDIOLOGY CONSULTATION REASON FOR CONSULTATION: Cardiac arrest. HISTORY OF PRESENT ILLNESS: Ms. Richard is a 56-year-old woman known from prior admissions presents to [facility] with cardiac arrest preceded by respiratory distress. She carries a history of end-stage renal disease, diabetes mellitus with end-organ damage, prior history of sudden cardiac arrest, and presents at this time with prolonged CPR. Imaging studies and neurological exam completed, and concerning for poor prognosis, severe hypoxic encephalopathy. Many family members are at bedside. We have had an extensive discussion about her current status. She is currently intubated and on supportive care. REVIEW OF SYSTEMS: Reviewed. Unable to assess. SOCIAL HISTORY: No history of alcohol or smoking. . Big family support. ALLERGIES: LEVAQUIN, VANCOMYCIN, METOCLOPRAMIDE, ASPIRIN, AND BENADRYL. FAMILY HISTORY: Significant for CAD and diabetes mellitus. PHYSICAL EXAMINATION VITALS: Temperature 99.1, heart rate 84, respiratory rate 20, blood pressure 102/90, and O2 sat 100% on vent support and in AFib with controlled ventricular response on telemetry. GENERAL: Intubated and sedated. CHEST: Decreased breath sounds and scattered rales. CARDIOVASCULAR: Irregularly irregular rate and rhythm. Normal S1 and S2. No S3. No S4. Systolic ejection murmur. ABDOMEN: Soft. EXTREMITIES: Trace edema. Wounds covered with dressings. STUDIES: Reviewed. White blood cells 9.5, hemoglobin 10.5 and platelets 91,000. INR 2.2, PT 23.7 and PTT 47.9. Creatinine 9.8, potassium 4.1, bicarbonate 23, glucose 73, AST 56, ALT 16. Blood cultures no growth after [address] with no acute bleed. Possible white matter or ischemic changes. Most recent chest x-ray with mild left pleural effusion, improved edema. Enlarged cardiomediastinal silhouette. Aortic calcifications of 1.3 cm above the jensen with lines and tubes in place. Brain MRI with extensive deep brain nuclei and bilateral cerebral hemisphere areas of flare hyperintensity and restrictive effusion likely related to deep anoxic ischemic brain injury. Moderate chronic microvascular ischemic changes. No intracranial mass, hemorrhage, hydrocephalus, or extra-axial fluid collections. ASSESSMENT 1. Status post sudden cardiac arrest with resulting hypoxic encephalopathy. 2. End-stage renal disease, on dialysis on Monday, Monday and Monday. 3. High probability of coronary artery disease. 4. Acute respiratory failure and pulmonary edema. 5. Left pleural effusion. 6. Moderate pericardial effusion. 7. Preserved left ventricular systolic function: Left ventricular ejection fraction 50% to 55%. RECOMMENDATIONS: Unfortunately, Ms. Richard's prognosis is extremely guarded from a neurologic standpoint. Family is considering changes in goals of care. At this point in time, continue supportive care. Will be available as needed. Her cardiac enzymes were mildly abnormal from 0.019 to 0.8. Given her cardiac arrest, this is not unexpected, and is not consistent with an ACS. Job#: [id number] WANDA
[2017-08-23] VITALS (25 sets, daily range): BP systolic 91–124; BP diastolic 57–76
[2017-08-23 04:49] LABS: BASOPHILS # (AUTO) 0.1 (0.0-0.1); BASOPHILS % 0.6 % (0.0-1.0); EOSINOPHILS # (AUTO) 0.4 (0.0-0.4); EOSINOPHILS % 4.5 % (0.0-6.0); HEMATOCRIT 32.1 % (34.2-44.1); HEMOGLOBIN 10.3 g/dL (12.0-16.0); LYMPHOCYTES # (AUTO) 1.6 (1.0-3.2); LYMPHOCYTES % 18.2 % (18.0-39.1); MEAN CORPUSCULAR HEMOGLOBIN 30.6 pg (28-32); MEAN CORPUSCULAR HGB CONC 32.1 g/dL (31-35); MEAN CORPUSCULAR VOLUME 95.3 fL (81-99); MONOCYTES # (AUTO) 0.5 (0.2-0.8); MONOCYTES % 5.4 % (4.4-11.3); NEUTROPHILS # (AUTO) 6.2 (2.1-6.9); NEUTROPHILS % 70.7 % (38.7-80.0); PLATELET COUNT 82 x10e3/uL (140-360); RED BLOOD COUNT 3.37 x10e6/uL (3.6-5.1); RED CELL DISTRIBUTION WIDTH 16.6 % (11.7-14.4)
[2017-08-23 05:15] LABS: ALBUMIN 2.6 g/dL (3.5-5.0); ALBUMIN/GLOBULIN RATIO 0.7 (0.8-2.0); ANION GAP 24.4 mmol/L (8-16); CALCIUM 10.1 mg/dL (8.4-10.2); CREATININE, SERUM 10.93 mg/dL (0.57-1.11); MAGNESIUM 1.9 MG/DL (1.3-2.1); PHOSPHORUS 5.9 MG/DL (2.3-4.7); POTASSIUM 4.4 mmol/L (3.5-5.1)
[2017-08-23] MEDS: PIPER-TAZ 3.375 GM 50 ML IV SCH ×3 (05:15→22:24)
--- NOTE | 2017-08-23 06:24 | Diagnostic Imaging Report ---
CHEST SINGLE (PORTABLE), 08/23/2017 5:00 AM Technique: CHEST SINGLE (PORTABLE) Comparison: 08/22/2017 Clinical history: Intubated Findings: See Impression Impression: 1. Lines/Tubes: ET tube projects just above the jensen (0.5 cm); consider retraction. 2. Stable enlarged cardiomediastinal silhouette. Aortic calcifications. 3. Increased interstitial opacities, favor edema, with bibasilar atelectasis or consolidation. 4. Probable small left effusion. Signed by: Dr Dayna Bailey MD on 08/23/2017 6:21 AM
--- NOTE | 2017-08-23 13:45 | Progress Note ---
DATE: CARDIOLOGY PROGRESS NOTE SUBJECTIVE: Intubated. Altered mental status. OBJECTIVE VITAL SIGNS: Temperature 98.6, heart rate 83, respiratory rate 14, blood pressure 109/65, O2 sat 100% on vent support. GENERAL: Intubated, sedated, nonresponsive. CHEST: Coarse breath sounds. CARDIOVASCULAR: Irregularly irregular rate and rhythm. Normal S1 and S2. ABDOMEN: Soft, nontender. EXTREMITIES: Trace edema. MEDICATIONS: Have been reviewed, currently on antibiotics. LABORATORY DATA: White blood cells 8.7, hemoglobin 9.3, platelets 82. Creatinine 10.9, potassium 4.4, bicarbonate 23. Chest x-ray reviewed, with stable large cardiomediastinal silhouette, aortic calcifications, increased interstitial opacities, significant edema and small left pleural effusion. ASSESSMENT 1. Status post sudden cardiac arrest with resulting hypoxic encephalopathy. 2. End-stage renal disease, on dialysis Monday, Monday, and Monday. 3. High probability of coronary artery disease. 4. Acute respiratory failure and pulmonary edema. 5. Left pleural effusion. 6. Moderate pericardial effusion with no tamponade. 7. Left ventricular systolic function of 50%-55%. 8. Atrial fibrillation. RECOMMENDATIONS: Overall guarded prognosis from a neurologic standpoint. Patient is considering changing goals of care. Thrombocytopenic currently, can initiate anticoagulation for atrial fibrillation if patient's family decides to continue with aggressive measures; however, prognosis is significantly guarded. Await neurologic followup. Job#: [id number] VAISHALI
--- NOTE | 2017-08-23 14:16 | Diagnostic Imaging Report ---
PROCEDURE: CHEST SINGLE (PORTABLE) COMPARISON: None. INDICATIONS: ETT PLACEMENT FINDINGS: Endotracheal tube tip projects approximately 3 cm above the jensen. Otherwise unchanged appearance of the heart and lungs relative to 08/23/2017. CONCLUSION: 1. Interval retraction of the endotracheal tube, with tip now projecting approximately 3 cm above the jensen. 2. Stable enlargement of the cardiac silhouette which may reflect cardiomegaly or pericardial effusion, with associated pulmonary interstitial opacities, likely edema, though the differential diagnosis includes multifocal infection. Dictated by: Quincy Crespo M.D. on 08/23/2017 at 14:21 Electronically approved by: Quincy Crespo M.D. on 08/23/2017 at 14:21
--- NOTE | 2017-08-23 15:09 | Progress Note ---
DATE: August 23, 2017 CARDIOLOGY PROGRESS NOTE SUBJECTIVE: Intubated, altered mental status. OBJECTIVE VITAL SIGNS: Temperature 98.6, heart rate 83, respiratory rate 14, blood pressure 109/65, O2 sat 100% on vent support. MEDICATIONS: Reviewed, on antibiotics Zosyn. TELEMETRY: In atrial fibrillation. LABORATORY WORK: Reviewed, significant for hemoglobin of 10.3, platelets 82, creatinine of 10.9, potassium 4.4, and bicarbonate 23. IMAGING: X-rays with enlarged cardiomediastinal silhouette, aortic calcifications, and pulmonary edema. ASSESSMENT 1. Hypoxic encephalopathy. 2. Acute respiratory failure. 3. Status post sudden cardiac arrest. 4. End-stage renal disease. 5. High probability of coronary artery disease. 6. Moderate pericardial effusion with no tamponade. 7. Left pleural effusion. 8. Preserved left ventricular systolic function with acute diastolic heart failure. 9. Overall guarded prognosis. PLAN: Await neurologic followup and assessment. Patient considering changing goals of care. If decide to proceed with aggressive medical therapy, can initiate heparin then. Job#: [id number]
[2017-08-23] MEDS ORDERED: DEXTROSE 50% SYRINGE 50 ML IV PRN (18:15)
[2017-08-24] VITALS (25 sets, daily range): BP systolic 90–114; BP diastolic 51–81
[2017-08-24 04:45] LABS: BASOPHILS % 0.4 % (0.0-1.0); EOSINOPHILS # (AUTO) 0.5 (0.0-0.4); EOSINOPHILS % 6.3 % (0.0-6.0); HEMATOCRIT 33.4 % (34.2-44.1); HEMOGLOBIN 10.5 g/dL (12.0-16.0); LYMPHOCYTES # (AUTO) 1.6 (1.0-3.2); LYMPHOCYTES % 20.3 % (18.0-39.1); MEAN CORPUSCULAR HEMOGLOBIN 30.3 pg (28-32); MEAN CORPUSCULAR HGB CONC 31.4 g/dL (31-35); MEAN CORPUSCULAR VOLUME 96.5 fL (81-99); MONOCYTES # (AUTO) 0.4 (0.2-0.8); MONOCYTES % 5.4 % (4.4-11.3); NEUTROPHILS # (AUTO) 5.4 (2.1-6.9); PLATELET COUNT 92 x10e3/uL (140-360); RED BLOOD COUNT 3.46 x10e6/uL (3.6-5.1); RED CELL DISTRIBUTION WIDTH 16.4 % (11.7-14.4)
[2017-08-24 05:15] LABS: ALBUMIN 2.4 g/dL (3.5-5.0); ALBUMIN/GLOBULIN RATIO 0.6 (0.8-2.0); ANION GAP 24.4 mmol/L (8-16); CALCIUM 9.7 mg/dL (8.4-10.2); CREATININE, SERUM 12.11 mg/dL (0.57-1.11); MAGNESIUM 1.9 MG/DL (1.3-2.1); POTASSIUM 4.4 mmol/L (3.5-5.1)
[2017-08-24 05:28] LABS: PHOSPHORUS 5.7 MG/DL (2.3-4.7)
[2017-08-24] MEDS: PIPER-TAZ 3.375 GM 50 ML IV SCH ×3 (05:55→22:02)
--- NOTE | 2017-08-24 18:51 | Progress Note ---
DATE: August 24, 2017 CARDIOLOGY PROGRESS NOTE SUBJECTIVE: Intubated. Minimally responsive off sedation. OBJECTIVE VITAL SIGNS: Temperature 97.6, heart rate 84, blood pressure 100/61, O2 sat 94% on vent support. GENERAL: Minimally responsive on vent support. CHEST: Clear to auscultation. CARDIOVASCULAR: Irregularly irregular rate and rhythm. Normal S1 and S2. Systolic ejection murmur 1/6. No S3, no S4. ABDOMEN: Soft. EXTREMITIES: No edema. Warm distal extremities. CARDIOVASCULAR MEDICATIONS: Reviewed. Currently off pressors. LABORATORY STUDIES: Studies reviewed. White blood cells 7.9, hemoglobin 10.5, platelets 92. Sodium 142, potassium 4.4, chloride 100, bicarbonate 22, BUN 77, creatinine 12.1. Glucose 76. Phosphorus 5.7, magnesium 1.9. Total bilirubin is 1.6, AST 64, ALT 12, alk phos 45, total protein 6.5, albumin 2.4. TELEMETRY: Atrial fibrillation with controlled ventricular response. ASSESSMENT 1. Severe hypoxic brain injury. 2. Status post sudden cardiac arrest. 3. Acute respiratory failure on ventilator support. 4. End-stage renal disease. 5. High probability of coronary artery disease. 6. Moderate pericardial effusion with no tamponade. 7. Left pleural effusion. 8. Preserved left ventricular systolic function. 9. [id number] diastolic heart failure. RECOMMENDATIONS: Excessive discussion with the family. Unfortunately the patient's neurologic outcome looks poor. Minimal response at this point. Family is considering changes in goals of care to comfort measures only and are awaiting other family members to arrive. I will discuss with them. No escalation of care at this point from my standpoint and will advise they consider DNR status as of now. Job#: [id number]
[2017-08-25] VITALS (25 sets, daily range): BP systolic 96–120; BP diastolic 55–76
[2017-08-25] MEDS: PIPER-TAZ 3.375 GM 50 ML IV SCH ×3 (06:00→20:46)
--- NOTE | 2017-08-25 12:50 | Progress Note ---
DATE: August 25, 2017 CARDIOLOGY PROGRESS NOTE SUBJECTIVE: Intubated. Minimally responsive. OBJECTIVE VITAL SIGNS: Temperature 98.9, heart rate 91, respiratory rate 14, blood pressure 115/66. O2 sat is 97% on vent support. LUNGS: Decreased breath sounds. CARDIOVASCULAR: Irregularly irregular rate and rhythm. Normal S1 and S2. Systolic ejection murmur. ABDOMEN: Soft. EXTREMITIES: Trace edema. Warm extremities. MEDICATIONS: Reviewed. On Zosyn antibiotic. STUDIES: White blood cells 7.9, hemoglobin 10.5, platelets 92. Glucose 75. TELEMETRY: Atrial fibrillation with controlled ventricular response. ASSESSMENT 1. Severe hypoxic brain injury. 2. Status post cardiac arrest. 3. Acute respiratory failure on ventilator support. 4. End-stage renal disease. 5. High probability of coronary artery disease. 6. Moderate pericardial effusion with no tamponade. 7. Left pleural effusion. 8. Preserved left ventricular systolic function. 9. Bvihy-bw-curtcho diastolic heart failure. RECOMMENDATIONS: Patient's family planning for comfort measures only and extubation possibly tomorrow. Awaiting the rest of the family to arrive. Continue with no escalation of care and DNR status as of now. Job#: [id number]
[2017-08-26] VITALS (9 sets, daily range): BP systolic 96–120; BP diastolic 55–68
[2017-08-26] MEDS: PIPER-TAZ 3.375 GM 50 ML IV SCH (05:18)
[2017-08-26] MEDS ORDERED: LORAZEPAM INJ 2 MG/ML VIAL IV PRN (06:15)
[2017-08-26] MEDS ORDERED: MORPHINE SULFATE 2 MG/ML SYR IV PRN (06:15)
--- NOTE | 2017-08-26 12:28 | Electroencephalogram ---
DATE OF STUDY: August 22, 2017 PROCEDURE: Electroencephalogram. REQUESTING PHYSICIAN: Dr. Pili Khanna PATIENT HISTORY: This 56-year-old woman with a history of cardiac arrest is having an EEG for evaluation of epileptiform activity and brain . The patient has received the following medications that might affect the EEG: Ativan. TECHNIQUE: This is a routine, portable EEG, recorded digitally, using the international 10/20 electrode placement system, and done in the inpatient setting with the patient comatose. The EEG is technically limited because of muscle and electrical artifact. DESCRIPTION: Poorly organized, poorly sustained 2-3 Hertz activity is best seen symmetrically in the posterior head regions. No focal or epileptiform activity is recorded. Sleep is not recorded. Photic stimulation does not produce a driving response. Hyperventilation is not performed. INTERPRETATION: This is an abnormal electroencephalogram with the patient comatose due to diffuse slowing of the background electrocortical activity compatible with severe, generalized encephalopathy. Clinical correlation is recommended. Job#: [id number] WANDA PERKINS
--- NOTE | 2017-09-26 22:21 | Discharge Summary ---
SUMMARY The patient came into the hospital with abdominal pain, flank pain, intractable nausea and vomiting, cramping in the epigastric area. The patient initially had some gastrointestinal bleed. The patient underwent an esophagogastroduodenoscopy by Dr. Odell. The patient came in with coffee-ground emesis. The patient was started on gentamicin initially thinking about sepsis, but blood cultures were negative. The patient's gentamicin was continued. The patient was feeling better. Dr. Dodson was consulted for renal, who continued with renal dialysis. The patient is ALLERGIC TO VANCOMYCIN, so was given gentamicin. The patient in the ICU Sandostatin was started, and kept in the ICU. Temperature has normalized and the patient's H and H have stabilized and blood pressure was looking good and the patient's coffee-ground vomitus had stopped and the patient was feeling much better. The patient did have episode of a little bit confusion and the patient was given some Ativan which she reacted abnormally to. The patient was given a dose of DICTATION ENDS HERE. ANN WEAVER MD Job#: [id number] BLACK
== END 2017-08-26 11:18 | disposition expired | DRG 870 ==
LOC: ER 17:07 → ERHOLD 20:17 → ICU 23:07 → MED/SURG3 08-19 01:29 → ICU 08-20 04:36
PROVIDERS: ADMIT Family Medicine; ATTEND Family Medicine
PROC: 5A1D70Z Performance of Urinary Filtration, Intermittent, Less than 6 Hours Per Day (ICD-10-PCS; 2017-08-18)
PROC: 5A1955Z Respiratory Ventilation, Greater than 96 Consecutive Hours (ICD-10-PCS; principal; 2017-08-20)
PROC: 5A12012 Performance of Cardiac Output, Single, Manual (ICD-10-PCS; 2017-08-20)
PROC: 0BH17EZ Insertion of Endotracheal Airway into Trachea, Via Natural or Artificial Opening (ICD-10-PCS; 2017-08-20)
PROC: 02HV33Z Insertion of Infusion Device into Superior Vena Cava, Percutaneous Approach (ICD-10-PCS; 2017-08-22)
PROC: B548ZZA Ultrasonography of Superior Vena Cava, Guidance (ICD-10-PCS; 2017-08-22)
DX: A41.9 Sepsis, unspecified organism (principal); N18.6 End stage renal disease; J96.00 Acute respiratory failure, unspecified whether with hypoxia or hypercapnia; I50.33 Acute on chronic diastolic (congestive) heart failure; G93.1 Anoxic brain damage, not elsewhere classified; I30.9 Acute pericarditis, unspecified; R40.3 Persistent vegetative state; I13.2 Hypertensive heart and chronic kidney disease with heart failure and with stage 5 chronic kidney disease, or end stage renal disease; K92.0 Hematemesis; K31.84 Gastroparesis; E11.22 Type 2 diabetes mellitus with diabetic chronic kidney disease; Z99.2 Dependence on renal dialysis; Z51.5 Encounter for palliative care; I25.10 Atherosclerotic heart disease of native coronary artery without angina pectoris; Z66 Do not resuscitate; E11.43 Type 2 diabetes mellitus with diabetic autonomic (poly)neuropathy; E11.319 Type 2 diabetes mellitus with unspecified diabetic retinopathy without macular edema; Z88.1 Allergy status to other antibiotic agents; I48.91 Unspecified atrial fibrillation; E11.21 Type 2 diabetes mellitus with diabetic nephropathy; D63.1 Anemia in chronic kidney disease; Z86.010 Personal history of colon polyps; E87.6 Hypokalemia
CPT/HCPCS: 31500; 36415; 36556; 36600; 70450; 70551; 71045; 74018; 74022; 74470; 76937; 80048; 80053; 80061; 82150; 82330; 82550; 82553; 82805; 82948; 83690; 83735; 84100; 84436; 84443; 84479; 84484; 85025; 85610; 85730; 86039; 86255; 86677; 86705; 86707; 86803; 86850; 86900; 86920; 87040; 90962; 92950; 93005; 93306; 94002; 94003; 96365; 99285; C1751; J0171; J0692; J1580; J1885; J2001; J2060; J2270; J2353; J2405; J2543; J3480; J3486; J7030; J7050; J7799

== ENCOUNTER → 2017-08-17 | Day surgery (SDC) | payer MEDICARE, OTHER ==
[~2017-08-17] MED LIST changes: +DEXTROSE 5% 250ML 250 ML IV ONE; +EPHEDRINE SULFATE INJ 50 MG/10 ML SYR ONE; +FENTANYL CITRATE/PF 100MCG/2 ML INJ ONE; +LIDOCAINE HCL 2% LOCAL INJ 5 ML SDV VIAL INJ ONE; +PROPOFOL IV EMULSION 10 MG/ML 50 ML VIAL ONE; +RENVELA PO; +SODIUM CHLORIDE 0.9% 500ML 500 ML ONE; +ZOFRAN ODT4 MG
--- NOTE | 2017-08-17 13:06 | Operative Report ---
DATE OF PROCEDURE: August 17, 2017 REFERRING PHYSICIAN: Dr. Ann Weaver. PROCEDURES PERFORMED: 1. Esophagogastroduodenoscopy with biopsies. 2. Colonoscopy with polypectomy and biopsies. INDICATIONS FOR ESOPHAGOGASTRODUODENOSCOPY: Bloating, excessive belching. INDICATIONS FOR COLONOSCOPY: Colorectal cancer screening, chronic diarrhea. MEDICATION: Patient was done under MAC. Please see anesthesiologist's note. PROCEDURE: With the patient in the left lateral decubitus position, the flexible fiberoptic Olympus gastroscope was introduced into the esophagus under direct visualization without any difficulty. There was some patchy erythema noted in the distal esophagus. There were minute tongues of red velvety mucosa that extended proximally from the GE junction, and the mucosa was somewhat nodular and biopsies were obtained. The scope was then advanced with ease into the stomach, traversing a small hiatal hernia. Mucosa overlying the antrum and the body revealed some patchy erythema and low-grade to moderate edema, and biopsies were obtained and sent to stain for H. pylori. Some hyperplastic-appearing polyps were noted also in the body of the stomach, and some were partially excised with the cold biopsy forceps. The pylorus was of normal contour and shape, was intubated with ease, and the scope was advanced with ease all the way to the 2nd portion of the duodenum. Several minute ulcers were noted in the duodenal bulb and also in the proximal 2nd portion without active bleeding or stigmata of recent hemorrhage. Biopsies were obtained from the proximal 2nd portion to rule out sprue considering patient's history of chronic diarrhea. The scope was then withdrawn back into the stomach and retroflexed, and the mucosa overlying the fundus and the cardia appeared to be within normal limits. The scope was then straightened out. The stomach was decompressed. The scope was subsequently withdrawn. Patient tolerated procedure well. IMPRESSION: 1. Distal esophagitis, mild. 2. Rule out John's esophagus. 3. Small sliding hiatal hernia. 4. Gastritis biopsied. Biopsies sent to stain for H. pylori. 5. Gastric polyps, body, hyperplastic-appearing, some partially excised with the cold biopsy forceps. 6. Duodenal ulcers, minute, without active bleeding or stigmata of recent hemorrhage. 7. Rule out sprue. PLAN: Follow up histology. Initiate Protonix 40 mg 1 p.o. q.a.m. a.c. Patient was then turned around and after adequate lubrication of the anal canal, a flexible fiberoptic Olympus colonoscope was inserted into the rectum with ease and advanced all the way to the cecum. The scope was then withdrawn slowly, and 4 polyps were snared from the ascending colon. Scattered diverticular disease was noted throughout. Five polyps were snared from the transverse colon, and 5 polyps were snared from the descending colon. One polyp was snared from the sigmoid colon. The mucosa overlying the left colon revealed some patchy areas of erythema and low-grade edema, and random biopsies were obtained. The scope was then retroflexed into the distal rectum and small internal hemorrhoids were noted, none of which was actively bleeding. The scope was then straightened out. The scope was subsequently withdrawn. Patient tolerated the procedure well. IMPRESSION: 1. Ascending colon polyps times 4 snared. 1. Diverticulosis. 2. Transverse colon polyps times 5 snared. 3. Descending colon polyps times 5 snared. 4. Mild patchy left-sided colitis. 5. Sigmoid colon polyp snared. 6. Internal hemorrhoids, none actively bleeding. PLAN: Follow up histology. Initiate Bentyl 10 mg 1 p.o. t.i.d. A total of 15 polyps were removed. Patient will need a followup colonoscopy in 1 year. Job#: [id number] EV cc:ANN WEAVER MD
== END | disposition home or self-care (01) ==
LOC: OR 08:23
PROVIDERS: ATTEND Internal Medicine Gastroenterology
DX: Z12.11 Encounter for screening for malignant neoplasm of colon (principal); K29.70 Gastritis, unspecified, without bleeding; K26.9 Duodenal ulcer, unspecified as acute or chronic, without hemorrhage or perforation; K63.5 Polyp of colon; K20.9 Esophagitis, unspecified; K31.7 Polyp of stomach and duodenum; R14.2 Eructation; R11.0 Nausea; I12.0 Hypertensive chronic kidney disease with stage 5 chronic kidney disease or end stage renal disease; K44.9 Diaphragmatic hernia without obstruction or gangrene; K57.30 Diverticulosis of large intestine without perforation or abscess without bleeding; N18.6 End stage renal disease; K51.50 Left sided colitis without complications; K64.8 Other hemorrhoids
CPT/HCPCS: 36415; 43239; 45385; 82948; 84132; 88305; 88312; 93005; J2001; J7040; 45380